=== PATIENT | male | born 1995 | race Caucasian/White ===

== ENCOUNTER 2017-01-27 23:52 | Emergency (ER) | payer BC, OTHER ==
[2017-01-28 00:07] VITALS: BP 144/80
[2017-01-28] MEDS ORDERED: Amoxicillin 500 MG Cap PO ONE (00:53)
--- NOTE | 2017-01-28 01:11 | EDM.PDOC ---
ED HPI ENT - General Chief Complaint: ENT Problem Stated Complaint: INFECTED TOOTH Time Seen by Provider: 01/28/17 00:45 Source of Information: Reports: Patient, RN notes reviewed - History of Present Illness INITIAL COMMENTS - FREE TEXT/NARRATIVE: 21 year old male with cavitated R lower rear molar. He states that chipped off several days ago, very painful. Has to work through the weekend. no fever or chills. - Related Data Allergies/ADRs: Allergies Allergy/AdvReac Type Severity Reaction Status Date / Time No Known Allergies Allergy Verified 01/28/17 00:04 Home Meds: Home Meds Ibuprofen 800 mg PO BID PRN 02/15/16 [History] Naproxen [Naprosyn] 500 mg PO Q12HR #14 tablet 01/28/17 [Rx] Past Medical History - Past Health History Medical/Surgical History: Denies Medical/Surgical History Psychiatric History: Reports: Addiction Social & Family History - Tobacco Use Smoking Status *Q: Never Smoker Years of Tobacco use: 3 Packs/Tins Daily: 0.5 - Recreational Drug Use Recreational Drug Use: Yes Drug Use in Last 12 Months: No Recreational Drug Type: 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 Recreational Drug Use Frequency: Not Used In Over 6 Months - Living Situation & Occupation Living situation: Reports: single Occupation: employed ED ROS ENT - Review of Systems Review Of Systems: See Below Constitutional: Denies: fever, chills HEENT: Reports: Dental pain Respiratory: Reports: No Symptoms Cardiovascular: Reports: No symptoms GI/Abdominal: Denies: Abdominal pain, Nausea, Vomiting Musculoskeletal: Reports: no symptoms Skin: Reports: no symptoms Neurological: Reports: No Symptoms ED EXAM, ENT - Physical Exam Exam: See Below General Appearance: alert, mild distress Eye Exam: bilateral eye: PERRL Nose: normal inspection Mouth/Throat: Dental pain (L posterior molar is decayed, broken off at the gum line, no drainage), Gum swelling (slight) Head: facial tenderness. No: facial swelling Neck: supple, full range of motion. No: lymphadenopathy (L), lymphadenopathy (R ) Respiratory/Chest: no respiratory distress, lungs clear, normal breath sounds Cardiovascular: regular rate, rhythm Neurological: alert, oriented, no motor/sensory deficits Course - Vital Signs Last Recorded V/S: Last Vital Signs Temp 98.4 F 01/28/17 00:05 Pulse 91 01/28/17 00:05 Resp 18 01/28/17 00:05 BP 144/80 H 01/28/17 00:05 Pulse Ox 98 01/28/17 00:05 - Orders/Labs/Meds Meds: Medications Discontinued Medications Generic Name Dose Route Start Last Admin Trade Name Vanessa PRN Reason Stop Dose Admin Amoxicillin 1,000 mg 01/28/17 00:53 01/28/17 01:02 Amoxil PO 01/28/17 00:54 1,000 mg ONETIME ONE Administration Departure - Departure Time of Disposition: 01:10 Disposition: Home, Self-Care 01 Condition: fair Clinical Impression: Pain, dental Prescriptions: Naproxen [Naprosyn] 500 mg PO Q12HR #14 tablet Referrals: PCP,Not In Area [Primary Care Provider] - Forms: ED Department Discharge Additional Instructions: naprosyn 500 mg twice daily, hydrocodone at night for severe pain as needed, tramadol alternating with Tylenol during the daytime for further pain relief as needed, amoxicillin 1000 mg twice daily for the next week, see dentist as soon as possible
== END 2017-01-28 01:25 | disposition home or self-care (01) ==
LOC: JD.ED 23:52
DX: K08.89 Other specified disorders of teeth and supporting structures (principal)
CPT/HCPCS: 99282; A9270; 99283

== ENCOUNTER 2017-05-08 21:12 | Emergency (ER) | payer OTHER ==
[2017-05-08 21:36] VITALS: BP 133/88
[2017-05-08] MEDS ORDERED: Lidocaine 1% 10 ML MDV INJECT ONE (22:26)
--- NOTE | 2017-05-08 22:39 | EDM.PDOC ---
ED HPI GENERAL MEDICAL PROBLEM - General Chief Complaint: Laceration Stated Complaint: LACERATION ON INDEX FINGER ON RT HAND Time Seen by Provider: 05/08/17 22:20 Source of Information: Reports: Patient History Limitations: Reports: No Limitations - History of Present Illness INITIAL COMMENTS - FREE TEXT/NARRATIVE: Patient is a 21-year-old male presents ED complaining of a laceration to the right index finger. Patient was cutting a dog collar and accidentally cut himself. Wound is deep with minimal bleeding. Pain is under control. Tetanus status is up-to-date. No sensory/motor deficits distally. Onset: Today, Sudden Right 2-Index finger Pain Score (Numeric/FACES): 4 - Related Data Allergies Allergy/AdvReac Type Severity Reaction Status Date / Time No Known Allergies Allergy Verified 05/08/17 21:36 Home Meds: Home Meds . [No Known Home Meds] 05/08/17 [History] Past Medical History - Past Health History Medical/Surgical History: Denies Medical/Surgical History Psychiatric History: Reports: Addiction Social & Family History - Family History Family Medical History: Noncontributory - Tobacco Use Smoking Status *Q: Current Some Day Smoker Years of Tobacco use: 5 Packs/Tins Daily: 0.2 - Recreational Drug Use Recreational Drug Use: Yes Drug Use in Last 12 Months: No Recreational Drug Type: 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 Recreational Drug Use Frequency: Not Used In Over 6 Months - Living Situation & Occupation Living situation: Reports: Single Occupation: Employed ED ROS GENERAL - Review of Systems Review Of Systems: ROS reveals no pertinent complaints other than HPI. ED EXAM, SKIN/RASH Exam: See Below Exam Limited By: No Limitations General Appearance: Alert, WD/WN, No Apparent Distress Ears: Hearing Grossly Normal Throat/Mouth: Normal Voice, No Airway Compromise Neck: Normal Inspection, Supple Respiratory/Chest: No Respiratory Distress, No Accessory Muscle Use Cardiovascular: Normal Peripheral Pulses, Regular Rate, Rhythm Peripheral Pulses: 2+: Radial (R) Extremities: Other (Approximately 1.2 similar deep laceration to the right index finger proximal phalanx.) Neurological: Alert, Oriented, Normal Cognition, No Motor/Sensory Deficits Psychiatric: Normal Affect, Normal Mood Skin: Warm, Dry, Normal Color ED SKIN PROCEDURES - Laceration/Wound Repair Right Proximal Finger Lac/Wound length In cm: 2.5 Appearance: Superficial, Subcutaneous, Clean Distal NVT: Neuro & Vascular Intact, No Tendon Injury Anesthetic Type: Local Local Anesthesia - Lidocaine (Xylocaine): 1% Plain Local Anesthetic Volume: 5cc Skin Prep: Chlorhexidine (Hibiciens), Saline, Sterile Drape Exploration/Debridement/Repair: Wound Explored, In a Bloodless Field, Explored to Base, Moderate Debridement, No Foreign Material Found Closed with: Sutures Suture Size: 4-0 # of Sutures: 5 Suture Type: Prolene, Interrupted, Simple Drain Placement: No Sterile Dressing Applied: Nurse Tetanus Status Addressed: Yes Complications: No Course - Vital Signs Last Recorded V/S: Last Vital Signs Temp 98.5 F 05/08/17 21:33 Pulse 4 L 05/08/17 21:33 Resp 18 05/08/17 21:33 BP 133/88 05/08/17 21:33 Pulse Ox 100 05/08/17 21:33 - Orders/Labs/Meds Meds: Medications Discontinued Medications Generic Name Dose Route Start Last Admin Trade Name Freq PRN Reason Stop Dose Admin Lidocaine HCl 10 ml 05/08/17 22:26 05/08/17 23:00 Xylocaine 1% INJECT 05/08/17 22:27 10 ml ONETIME ONE Administration - Re-Assessments/Exams Free Text/Narrative Re-Assessment/Exam: Wound was closed with no complications. No tendon involvement. Discharge instructions as documented. Departure - Departure Time of Disposition: 22:41 Disposition: Home, Self-Care 01 Condition: Good Clinical Impression: Finger laceration Qualifiers: Encounter type: initial encounter Finger: index finger Damage to nail status: without damage Foreign body presence: without foreign body Laterality: right Qualified Code(s): S61.210A - Laceration without foreign body of right index finger without damage to nail, initial encounter - Discharge Information Instructions: Laceration Care, Adult, [id number], Stitches, Vijay, or Adhesive Wound Closure, [id number] Referrals: PCP,None [Primary Care Provider] - Forms: ED Department Discharge Additional Instructions: Sutures need to come out in 10 days. Followup with PCP at [facility] for removal. Cleanse site twice daily with soap and water, pat dry, reapply triple antibiotic ointment, and dressing. Refrain from soaking wound. Return to the ED if you develop redness, increased swelling, purulent drainage, or any additional new or worsening symptoms.
== END 2017-05-08 23:20 | disposition home or self-care (01) ==
LOC: JD.ED 21:12
DX: S61.210A Laceration without foreign body of right index finger without damage to nail, initial encounter (principal); F17.210 Nicotine dependence, cigarettes, uncomplicated; W26.0XXA Contact with knife, initial encounter
CPT/HCPCS: 12001; 99282-25; 99283-25

== ENCOUNTER 2021-10-27 21:31 | Emergency (ER) | payer SELFPAY ==
[2021-10-27] MEDS ORDERED: Cephalexin 500 MG Cap PO ONE (22:06)
[2021-10-27 22:34] VITALS: BP 159/96; PULSE 126
[2021-10-27] MEDS ORDERED: FLU Vacc QS2021-22 36MOS UP/PF 60 MCG/0.5 ML Syringe IM ONE (22:45)
== END 2021-10-27 22:55 | disposition home or self-care (01) ==
LOC: JD.ED 21:31
DX: L03.211 Cellulitis of face (principal); L73.9 Follicular disorder, unspecified; F15.10 Other stimulant abuse, uncomplicated; R60.0 Localized edema; Z23 Encounter for immunization
CPT/HCPCS: 80306; 90471; 90686; 99283; A9270; G0008